=== PATIENT | female | born 1950 | race Two or more races ===

== ENCOUNTER 2018-07-16 20:08 | Emergency (ER) | payer MEDICARE, OTHER ==
[~2018-07-16] VITALS: Ht 157.5 cm; Wt 72.8 kg
[2018-07-16 20:43] LABS: BASOPHILS # (AUTO) 0.03 x10^3/uL (0-0.1); BASOPHILS % (AUTO) 1 % (0-1); EOSINOPHILS # (AUTO) 0.14 x10^3/uL (0-0.4); EOSINOPHILS % (AUTO) 3 % (1-7); LYMPHOCYTES # (AUTO) 2.29 x10^3/uL (1-3.4); LYMPHOCYTES % (AUTO) 41 % (22-44); MD NO; MEAN CORPUSCULAR HEMOGLOBIN 29.2 pg (27.0-34.8); MEAN CORPUSCULAR HGB CONC 33.4 g/dL (32.4-35.8); MEAN CORPUSCULAR VOLUME 87.2 fL (80-100); MEAN PLATELET VOLUME 9.6 fL (7.4-10.4); MONOCYTES # (AUTO) 0.42 x10^3/uL (0.2-0.8); MONOCYTES % (AUTO) 7 % (2-9); NEUTROPHILS # (AUTO) 2.75 x10^3/uL (1.8-6.8); NEUTROPHILS % (AUTO) 49 % (42-75); PLATELET COUNT 217 x10^3/uL (130-400); RED BLOOD COUNT 5.06 x10^6/uL (3.82-5.3); RED CELL DISTRIBUTION WIDTH 12.8 % (9.6-15.2)
[2018-07-16 20:47] LABS: ALANINE AMINOTRANSFERASE 25 U/L (12-78); ANION GAP 8 mmol/L (5-15); CALCIUM 9.4 mg/dL (8.5-10.1); CHLORIDE 105 mmol/L (98-107); CREATININE 0.77 mg/dL (0.55-1.02)
[2018-07-16 20:51] LABS: ALKALINE PHOSPHATASE 150 U/L (45-117); BILIRUBIN,TOTAL 0.4 mg/dL (0.2-1.0); TOTAL PROTEIN 7.5 g/dL (6.4-8.2)
[2018-07-16] MEDS ORDERED: CEFTRIAXONE PMX 1GM/50ML 0 ML ONE (21:26)
[2018-07-16] MEDS ORDERED: HYDROmorphone 2 MG/ML, 1ML ONE (21:26)
[2018-07-16] MEDS ORDERED: SODIUM CHLORIDE FLUSH 10ML SYR IVF ONE (21:30)
[2018-07-16] MEDS ORDERED: AZITHROMYCIN 500 MG in SODIUM CHLORIDE 0.9% 250 ML IV ONE (21:30)
[2018-07-16] MEDS ORDERED: HYDROmorphone 2 MG/ML, 1ML IVPush PRN (21:30)
[2018-07-16] MEDS ORDERED: CEFTRIAXONE PMX 1GM/50ML 50 ML IV ONE (21:30)
[2018-07-16 21:42] LABS: CULTURE INDICATED? YES; MICROSCOPIC AUTO
[2018-07-16 23:32] VITALS: BP 142/75
== END 2018-07-16 23:34 | disposition home or self-care (01) ==
LOC: ED 21:28
DX: R10.30 Lower abdominal pain, unspecified (principal); J45.909 Unspecified asthma, uncomplicated; Z90.49 Acquired absence of other specified parts of digestive tract; Z88.5 Allergy status to narcotic agent; Z87.891 Personal history of nicotine dependence
CPT/HCPCS: 36415; 74176; 80053; 81001; 85025; 87086; 96374; 99285; J1170

== ENCOUNTER 2019-04-23 14:09 | Inpatient (IN) | payer MEDICARE, OTHER ==
[~2019-04-23] VITALS: Ht 157.5 cm; Wt 69.0 kg
--- NOTE | 2019-04-23 14:56 | NUR ---
PT TO ROOM FROM LOBBY
--- NOTE | 2019-04-23 15:17 | NUR ---
PT BIB P/V WITH SON C/O ABD PAIN FOR 2 WEEKS WITH N/V SINCE SUNDAY AFTER PT ATE [place] AT THE [facility]. PT SENT BY PMD TO R/O APPENDICITIS. WAITING FOR MD ORDERS. UA COLLECTED.
[2019-04-23 15:57] LABS: BASOPHILS # (AUTO) 0.03 x10^3/uL (0-0.1); BASOPHILS % (AUTO) 1 % (0-1); EOSINOPHILS # (AUTO) 0.08 x10^3/uL (0-0.4); EOSINOPHILS % (AUTO) 2 % (1-7); LYMPHOCYTES % (AUTO) 35 % (22-44); MD NO; MEAN CORPUSCULAR HEMOGLOBIN 29.8 pg (27.0-34.8); MEAN CORPUSCULAR HGB CONC 33.5 g/dL (32.4-35.8); MEAN CORPUSCULAR VOLUME 88.9 fL (80-100); MEAN PLATELET VOLUME 9.8 fL (7.4-10.4); MONOCYTES % (AUTO) 8 % (2-9); NEUTROPHILS # (AUTO) 2.59 x10^3/uL (1.8-6.8); NEUTROPHILS % (AUTO) 54 % (42-75); PLATELET COUNT 181 x10^3/uL (130-400); RED BLOOD COUNT 4.96 x10^6/uL (3.82-5.3); RED CELL DISTRIBUTION WIDTH 12.3 % (9.6-15.2)
[2019-04-23] MEDS ORDERED: FENTANYL PF 100 MCG/2ML IVPush PRN (16:00)
[2019-04-23] MEDS ORDERED: ONDANSETRON 2MG/ML, 2ML IVPush ONE (16:00)
[2019-04-23 16:05] LABS: ALANINE AMINOTRANSFERASE 27 U/L (12-78); ALBUMIN 4.2 g/dL (3.4-5.0); ANION GAP 5 mmol/L (5-15); CALCIUM 9.2 mg/dL (8.5-10.1); CHLORIDE 108 mmol/L (98-107); CREATININE 0.73 mg/dL (0.55-1.02); INTERNATIONAL NORMALIZED RATIO 0.94 (0.93-1.1); PROTHROMBIN TIME 9.9 Seconds (9.6-11.5)
[2019-04-23 16:07] LABS: ALKALINE PHOSPHATASE 100 U/L (45-117); BILIRUBIN,TOTAL 0.6 mg/dL (0.2-1.0); TOTAL PROTEIN 7.1 g/dL (6.4-8.2)
[2019-04-23 16:26] LABS: MICROSCOPIC NOT IND
[2019-04-23 16:33] LABS: CULTURE INDICATED? NO
[2019-04-23] MEDS ORDERED: ONDANSETRON 2MG/ML, 2ML ONE (16:35)
[2019-04-23] MEDS ORDERED: FENTANYL PF 100 MCG/2ML ONE (16:35)
[2019-04-23] MEDS ORDERED: OMNIPAQUE 350 MG/ML, 100ML BOTTLE ONE (17:02)
--- NOTE | 2019-04-23 17:15 | NUR ---
PT BACK FROM CT C/O HIVES TO FACE AND TROUBLE BREATHING. DR. OROZCO AWARE.
[2019-04-23] MEDS ORDERED: EPINEPHRINE 1 MG/ML, 1ML ONE (17:19)
[2019-04-23] MEDS ORDERED: DIPHENHYDRAMINE 50 MG/ML, 1ML ONE (17:19)
[2019-04-23] MEDS ORDERED: FAMOTIDINE 20 MG/2 ML ONE (17:19)
[2019-04-23] MEDS ORDERED: methylPREDNISolone SOD SUCC 125 MG/2 ML ONE (17:19)
[2019-04-23] MEDS: methylPREDNISolone SOD SUCC 125 MG/2 ML IVPush SCH ×2 (17:29→23:22)
[2019-04-23] MEDS ORDERED: EPINEPHRINE 1 MG/ML, 1ML SQ ONE (17:30)
[2019-04-23] MEDS ORDERED: FAMOTIDINE 20 MG/2 ML IVPush ONE (17:30)
--- NOTE | 2019-04-23 17:56 | NUR ---
ASSUMED CARE OF PT WHILE PRIMARY RN AT [facility]. PT RESTING IN BED IN NO DISTRESS. VITALS STABLE.
[2019-04-23] MEDS ORDERED: DIPHENHYDRAMINE 50 MG/ML, 1ML IVPush ONE (18:00)
--- NOTE | 2019-04-23 18:08 | NUR ---
ULTRASOUND DELAYED DUE TO BLADDER NEEDING TO BE FULL
--- NOTE | 2019-04-23 18:30 | NUR ---
PT SPEAKING IN FULL SENTENCES TO FAMILY [facility] IN NAD. PT STILL C/O ABD PAIN BUT PAIN IS NOW IN THE LLQ RATHER THAN RLQ.
--- NOTE | 2019-04-23 18:45 | NUR ---
PT IN US.
--- NOTE | 2019-04-23 19:36 | NUR ---
PT TO BE ADMITTED. VSS. 3 P'S ADDRESSED. PT AND FAMILY UPDATED ON POC.
[2019-04-23] MEDS ORDERED: ATOR40TA78 PO (19:41)
[2019-04-23] MEDS ORDERED: LEVO50TA5 PO (19:41)
[2019-04-23 20:50] VITALS: BP 136/85
[2019-04-23] MEDS ORDERED: ATORVASTATIN 40 MG TABLET PO SCH (21:00)
[2019-04-23] MEDS ORDERED: LABETALOL 5MG/ML, 20ML IVPush PRN (21:30)
[2019-04-23] MEDS ORDERED: ONDANSETRON 2MG/ML, 2ML IVPush PRN (21:30)
[2019-04-23] MEDS ORDERED: DOCUSATE 100 MG CAPSULE PO PRN (21:30)
[2019-04-23] MEDS ORDERED: hydrALAzine 20 MG/ML, 1ML IVPush PRN (21:30)
[2019-04-23] MEDS ORDERED: POLYETHYLENE GLYCOL 17 GM PACKET PO PRN (21:30)
[2019-04-23] MEDS ORDERED: BISACODYL 10 MG SUPP PR PRN (21:30)
[2019-04-23] MEDS ORDERED: ACETAMINOPHEN 325 MG TABLET PO PRN (21:30)
[2019-04-23] MEDS ORDERED: DIPHENHYDRAMINE 12.5MG/5ML, 10ML UDC PO PRN (22:00)
[2019-04-23 22:15] VITALS: BP 125/75
--- NOTE | 2019-04-23 22:44 | NUR ---
COLON,[place] - Fall Risk Medications present and NOT receiving anticoagulants.
[2019-04-23 23:05] VITALS: BP 118/76
[2019-04-23 23:20] VITALS: BP 106/82
[2019-04-23 23:35] VITALS: BP 104/72
[2019-04-24 00:35] VITALS: BP 100/70
[2019-04-24] MEDS: methylPREDNISolone SOD SUCC 125 MG/2 ML IVPush SCH ×3 (00:54→11:13)
[2019-04-24 01:08] VITALS: BP 100/65
[2019-04-24 01:35] VITALS: BP 92/56
[2019-04-24 02:35] VITALS: BP 105/70
[2019-04-24 07:23] VITALS: BP 113/70
[2019-04-24] MEDS ORDERED: LEVOTHYROXINE 50 MCG TABLET PO SCH (09:00)
[2019-04-24] MEDS ORDERED: FAMOTIDINE 20 MG TABLET PO SCH (09:00)
[2019-04-24] MEDS ORDERED: SENNA/DOCUSATE TABLET PO SCH (09:00)
[2019-04-24] MEDS ORDERED: SODIUM CHLORIDE 0.9% 1,000 ML IV SCH (12:00)
[2019-04-24 13:05] VITALS: BP 137/83
[2019-04-24] MEDS ORDERED: FAMO20TA7 PO (13:47)
[2019-04-24] MEDS ORDERED: ADRENACLICK IM (13:47)
== END 2019-04-24 15:55 | disposition home or self-care (01) | DRG 916 ==
LOC: ED 17:02 → EDIP 19:43 → 4WST 20:14 → DCLOUNGE 04-24 15:42
PROVIDERS: ADMIT Family Medicine; ATTEND Family Medicine
DX: T88.6XXA Anaphylactic reaction due to adverse effect of correct drug or medicament properly administered, initial encounter (principal); T50.8X5A Adverse effect of diagnostic agents, initial encounter; Y92.239 Unspecified place in hospital as the place of occurrence of the external cause; E78.5 Hyperlipidemia, unspecified; E03.9 Hypothyroidism, unspecified; R10.33 Periumbilical pain; J45.909 Unspecified asthma, uncomplicated; R21 Rash and other nonspecific skin eruption; Z87.891 Personal history of nicotine dependence; Z87.892 Personal history of anaphylaxis; Z90.49 Acquired absence of other specified parts of digestive tract; R06.82 Tachypnea, not elsewhere classified; K21.9 Gastro-esophageal reflux disease without esophagitis
CPT/HCPCS: 36415; 70450; 74177; 76856; 80053; 81003; 83690; 85025; 85610; 85730; 93005; 96372; 96374; 96375; 99291; G0378; J0171; J2405; J3010; Q9967; J1200; J2930; J3490

== ENCOUNTER 2021-05-18 14:28 | Emergency (ER) | payer MEDICARE ==
[~2021-05-18] VITALS: Ht 152.4 cm; Wt 73.8 kg
[~2021-05-18 14:28] MED LIST: ACID1TAB7 PO; ADRENACLICK IM; ATOR40TA78 PO; CLIN300C9 PO; FAMO20TA7 PO; HYDR-826 PO; LEVO50TA5 PO; OMEP-110 PO; OMEP20TA9 PO; SUCR1ORA5 PO
[2021-05-18 14:35] VITALS: BP 136/116
--- NOTE | 2021-05-18 15:26 | NUR ---
PT TO XR
[2021-05-18] MEDS ORDERED: HYDROcodone/APAP 5/325 TABLET ONE (16:14)
--- NOTE | 2021-05-18 16:20 | NUR ---
Patient given incentive spirometer/discharge instructions and Rx; they have confirmed that they understand the instructions. Patient ambulatory with steady gait. NAD, all questions answered appropriately, denies additional needs at this time. No personal belongings left in room after discharge.
[2021-05-18] MEDS ORDERED: HYDROcodone/APAP 5/325 TABLET PO ONE (16:30)
== END 2021-05-18 16:31 | disposition home or self-care (01) ==
LOC: ED 15:14
DX: S20.211A Contusion of right front wall of thorax, initial encounter (principal); J45.909 Unspecified asthma, uncomplicated; E78.5 Hyperlipidemia, unspecified; Z86.73 Personal history of transient ischemic attack (TIA), and cerebral infarction without residual deficits; Z90.49 Acquired absence of other specified parts of digestive tract; W01.0XXA Fall on same level from slipping, tripping and stumbling without subsequent striking against object, initial encounter; Y93.89 Activity, other specified; Y92.009 Unspecified place in unspecified non-institutional (private) residence as the place of occurrence of the external cause; Y99.8 Other external cause status
CPT/HCPCS: 99283